=== PATIENT | male | born 1960 | race Caucasian/White ===

== ENCOUNTER 2019-11-27 10:04 | Outpatient (CLI) | payer OTHER | END 2019-11-27 23:59 | disposition home or self-care (01) | LOC: WOUND 10:04 | PROVIDERS: ATTEND Family Medicine | DX: L97.312 Non-pressure chronic ulcer of right ankle with fat layer exposed (principal) | CPT/HCPCS: 97597; 99215 ==

== ENCOUNTER → 2019-12-04 | Outpatient (CLI) | payer OTHER | END | disposition home or self-care (01) | LOC: WOUND 09:36 | PROVIDERS: ATTEND Family Medicine | DX: L97.312 Non-pressure chronic ulcer of right ankle with fat layer exposed (principal) | CPT/HCPCS: 97597 ==

== ENCOUNTER 2019-12-18 09:06 | Outpatient (CLI) | payer OTHER | END 2019-12-18 23:59 | disposition home or self-care (01) | LOC: WOUND 09:06 | PROVIDERS: ATTEND Family Medicine | DX: L97.312 Non-pressure chronic ulcer of right ankle with fat layer exposed (principal) | CPT/HCPCS: 99213 ==